=== PATIENT | male | born 1990 | race Caucasian/White ===

== ENCOUNTER 2016-09-14 15:26 | Emergency (ER) | payer MEDICAID ==
[~2016-09-14] VITALS: Ht 182.9 cm; Wt 89.0 kg
[2016-09-14 15:30] VITALS: Ht 182.9 cm; Wt 89.0 kg
[2016-09-14] MEDS ORDERED: LIDOCAINE 1% (MDV) 20 ML INJ SC ONE ×2 (16:30)
[2016-09-14] MEDS ORDERED: HYDROCODONE/APAP (5/325) TAB PO ONE (17:00)
--- NOTE | 2016-09-14 17:12 | RADRPT ---
PROCEDURE: CT Brain without contrast. CLINICAL INDICATION: Headache. TECHNIQUE: A CT of the brain without contrast was performed utilizing axial sections from the skul l base through the vertex. The patient was scanned without intravenous contrast enhancement. Sagitta l and coronal reformatted images were obtained using the data from the axial images. Total exam DLP is 720.23 mGy-cm. CTDIvol is 44.11 mGy. One or more of the following dose reduction techniques we re used: Automated exposure control, adjustment of the mA and/or kV according to patient size, use o f iterative reconstruction technique. COMPARISON: None available FINDINGS: There is normal mosley-white matter differentiation. The ventricles and cisterns are normal. There is no intracranial hemorrhage or space-occupying lesion. There is no skull fracture or lytic lesion. IMPRESSION: 1. Normal noncontrast CT scan of the brain. 2. No intracranial hemorrhage. RPTAT: QQ .Spencer Hernandez MD, MD Date Time Electronically viewed and signed by .Spencer Hernandez MD, MD on 09/14/2016 17:11 .R/
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
[2016-09-14] MEDS ORDERED: ACET500C5 PO (18:08)
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
[2016-09-14 18:47] VITALS: BP 127/75; PULSE 73; RESP 18; TEMP 98
== END 2016-09-14 18:46 | disposition home or self-care (01) ==
LOC: FTE 15:26
DX: S01.01XA Laceration without foreign body of scalp, initial encounter (principal); F17.210 Nicotine dependence, cigarettes, uncomplicated; V18.4XXA Pedal cycle driver injured in noncollision transport accident in traffic accident, initial encounter
CPT/HCPCS: 12002; 70450; 70486; 72125; Z7502; Z7610

== ENCOUNTER 2016-09-16 09:12 | Emergency (ER) | payer MEDICAID ==
[~2016-09-16] VITALS: Ht 180.3 cm; Wt 78.5 kg
[~2016-09-16 09:12] MED LIST: ACET500C5 PO
[2016-09-16 09:21] VITALS: Ht 180.3 cm; Wt 78.5 kg
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
== END 2016-09-16 10:03 | disposition home or self-care (01) ==
LOC: FTE 09:12
DX: Z48.01 Encounter for change or removal of surgical wound dressing (principal); F17.210 Nicotine dependence, cigarettes, uncomplicated
CPT/HCPCS: 99281

== ENCOUNTER 2016-09-20 09:39 | Emergency (ER) | END 2016-09-20 10:15 | disposition home or self-care (01) | DX: Z48.02 Encounter for removal of sutures (principal); F17.210 Nicotine dependence, cigarettes, uncomplicated ==